=== PATIENT | male | born 1995 | race Caucasian/White ===

== ENCOUNTER 2019-07-30 11:29 | Outpatient (CLI) | payer MEDICAID ==
--- NOTE | 2019-07-30 12:57 | XRAY Report ---
Reason: ABD PAIN, LOWER, R10.30 Procedure Date: 07/30/2019 Accession Number: [id number] / [id number] Procedure: XRS - Abdomen 2 View X-Ray CPT Code: 15936 Final Report FULL RESULT: EXAM: ABDOMEN RADIOGRAPHY EXAM DATE: 07/30/2019 11:46 AM. CLINICAL HISTORY: ABD PAIN, LOWER, R10. 30. COMPARISON: None. TECHNIQUE: 2 views. FINDINGS: Stool and gas are seen in the colon. No abnormally dilated loops of bowel are present. There is no pneumatosis or free intraperitoneal air. No abnormal calcifications are present. The lung bases are clear. The osseous structures are intact. IMPRESSION: Normal. [facility]
[2019-07-30 17:35] LABS: BASOPHILS % (AUTO) 0.4 %; EOSINOPHILS # (AUTO) 0.1 10^3/uL (0.0-0.7); EOSINOPHILS % (AUTO) 1.3 %; HGB - HEMOGLOBIN 16.2 g/dL (14.0-18.0); LYMPHOCYTES # (AUTO) 2.4 10^3/uL (1.5-3.5); MEAN CORPUSCULAR HEMOGLOBIN 28.9 pg (27.0-31.0); MEAN CORPUSCULAR HGB CONC 34.1 g/dL (32.0-36.0); MEAN CORPUSCULAR VOLUME 84.8 fL (80.0-94.0); MEAN PLATELET VOLUME 11.2 fL (7.4-11.4); MONOCYTES # (AUTO) 0.7 10^3/uL (0.0-1.0); MONOCYTES % (AUTO) 9.4 %; NEUTROPHILS # (AUTO) 4.4 10^3/uL (1.5-6.6); NEUTROPHILS % (AUTO) 57.5 %; PLT - PLATELET COUNT 288 10^3/uL (130-450); RED CELL DISTRIBUTION WIDTH 11.7 % (12.0-15.0); WHITE BLOOD COUNT 7.6 x10^3/uL (4.8-10.8)
[2019-07-30 17:55] LABS: ALBUMIN 4.7 g/dL (3.2-5.5); ALBUMIN/GLOBULIN RATIO 1.5 (1.0-2.2); BILIRUBIN,TOTAL 0.7 mg/dL (0.2-1.0); CALCIUM 9.3 mg/dL (8.5-10.3); CREATININE 0.9 mg/dL (0.6-1.2); TOTAL PROTEIN 7.8 g/dL (6.7-8.2)
== END 2019-07-30 11:30 | disposition home or self-care (01) ==
LOC: DI.S 11:29
PROVIDERS: ATTEND Internal Medicine
DX: R10.30 Lower abdominal pain, unspecified (principal)
CPT/HCPCS: 36415; 74019; 80053; 85025; 85651

== ENCOUNTER 2019-08-11 07:26 | Outpatient (CLI) | payer MEDICAID ==
--- NOTE | 2019-08-12 00:01 | Ultrasound Report ---
Reason: ABDOMINAL PAIN, BLOATING Procedure Date: 08/11/2019 Accession Number: [id number] / [id number] Procedure: US - Abdomen Complete CPT Code: Final Report FULL RESULT: EXAM: ABDOMEN ULTRASOUND EXAM DATE: 08/11/2019 08:10 AM. CLINICAL HISTORY: ABDOMINAL PAIN, BLOATING. COMPARISON: Abdomen pain and bloating since February 2019.. TECHNIQUE: Real-time scanning was performed with static images obtained. FINDINGS: Liver: Normal in size and echotexture. 15.9 cm. Main portal vein flow: Hepatopetal. Subcapsular medial segment right liver lobe 1.2 x 1.3 x 0.8 cm nodule most consistent with hemangioma or focal fatty deposition. Gallbladder: Normal. No stones, wall thickening, or sonographic Garcia's sign. Biliary System: Common bile duct measures 3 mm. No intrahepatic or extrahepatic ductal dilatation. Pancreas: Visualized portion is unremarkable. Kidneys: Right: 11.6 cm longitudinally. Normal. No contour-deforming mass, stones, or hydronephrosis. Left: 12.5 cm longitudinally. Normal. No contour-deforming mass, stones, or hydronephrosis. Spleen: 12.4 x 3.2 x 11.8 cm. Normal in size and echotexture. Volume 242 cc. Aorta and Inferior Vena Cava: Unremarkable. Other: None. IMPRESSION: 1. Negative for gallstones, gallbladder disease or biliary obstruction. 2. Negative for kidney stones or hydronephrosis. 3. Unremarkable abdominal sonogram. [facility]
== END 2019-08-11 07:27 | disposition home or self-care (01) ==
LOC: DI 07:26
PROVIDERS: ATTEND Internal Medicine
DX: R10.30 Lower abdominal pain, unspecified (principal)
CPT/HCPCS: 76700